=== PATIENT | female | born 1935 | race Caucasian/White ===

== ENCOUNTER → 2018-09-04 | Outpatient (RCR) | payer MEDICARE, BC | LOC: PT 08-16 16:18 | PROVIDERS: ATTEND Specialist | DX: M75.42 Impingement syndrome of left shoulder (principal); M75.92 Shoulder lesion, unspecified, left shoulder; M47.812 Spondylosis without myelopathy or radiculopathy, cervical region; M62.81 Muscle weakness (generalized) | CPT/HCPCS: 97010; 97110 ×8; 97162; 97530; G8984; G8985 ==

== ENCOUNTER 2018-09-18 15:00 | Outpatient (RCR) | payer MEDICARE, BC | END 2018-10-05 | LOC: PT 15:00 | PROVIDERS: ATTEND Specialist | DX: M75.42 Impingement syndrome of left shoulder (principal); M47.812 Spondylosis without myelopathy or radiculopathy, cervical region; M62.81 Muscle weakness (generalized) | CPT/HCPCS: 97010; 97110 ×5; G8984; G8985 ==

== ENCOUNTER 2019-10-31 13:59 | Outpatient (RCR) | payer MEDICARE, BC | END 2019-11-03 | LOC: PT 13:59 | PROVIDERS: ATTEND Specialist | DX: S32.10XD Unspecified fracture of sacrum, subsequent encounter for fracture with routine healing (principal); R26.89 Other abnormalities of gait and mobility ==

== ENCOUNTER 2019-11-14 13:58 | Outpatient (RCR) | payer MEDICARE, BC | END 2019-12-04 | LOC: PT 13:58 | PROVIDERS: ATTEND Specialist | DX: S32.10XD Unspecified fracture of sacrum, subsequent encounter for fracture with routine healing (principal); R26.89 Other abnormalities of gait and mobility ==

== ENCOUNTER 2022-11-29 15:12 | Emergency (ER) | payer MEDICARE, BC ==
[~2022-11-29] VITALS: Ht 160 cm; Wt 51.7 kg
[2022-11-29] MEDS ORDERED: PREDNISONE 20 MG TAB PO ONE (15:30)
[2022-11-29] MEDS: ALBUTEROL/IPRATROPIUM 3 ML NEB NEB ONE ×3 (15:40→16:36)
[2022-11-29] MEDS ORDERED: ALBUTEROL SULF 0.083% NEB SOLN 3 ML NEB ONE (16:05)
[2022-11-29] MEDS ORDERED: IPRATROPIUM BROMIDE 0.02% 2.5 ML NEB ONE (16:06)
[2022-11-29] MEDS ORDERED: PREDNISONE50 MG PO (16:45)
[2022-11-29] MEDS ORDERED: BROMFED DM COU118 ML PO (16:45)
[2022-11-29] MEDS ORDERED: BUDESONIDE0.5 MG/2 M NEB (16:45)
[2022-11-29] MEDS ORDERED: ALBUTEROL2.5 MG/0.5 PO (16:45)
== END 2022-11-29 17:24 | disposition home or self-care (01) ==
LOC: ER 15:18
DX: J44.1 Chronic obstructive pulmonary disease with (acute) exacerbation (principal); I10 Essential (primary) hypertension; Z87.891 Personal history of nicotine dependence; Z88.0 Allergy status to penicillin; Z79.899 Other long term (current) drug therapy
CPT/HCPCS: 71045; 94799; 99283; J7512

== ENCOUNTER → 2024-01-03 | Outpatient (RCR) | payer MEDICARE, BC ==
[~2024-01-03] MED LIST: ALBUTEROL2.5 MG/0.5 PO; BROMFED DM COU118 ML PO; BUDESONIDE0.5 MG/2 M NEB; PREDNISONE50 MG PO
== END ==
LOC: ST 10:49
PROVIDERS: ATTEND Physical Medicine & Rehabilitation
DX: I69.351 Hemiplegia and hemiparesis following cerebral infarction affecting right dominant side (principal); F80.2 Mixed receptive-expressive language disorder
CPT/HCPCS: 92523

== ENCOUNTER 2024-02-22 10:00 | Outpatient (RCR) | payer MEDICARE, BC | END 2024-03-04 | disposition home or self-care (01) | LOC: PT 10:00 | PROVIDERS: ATTEND Physical Medicine & Rehabilitation | DX: I69.351 Hemiplegia and hemiparesis following cerebral infarction affecting right dominant side (principal); F80.2 Mixed receptive-expressive language disorder ==

== ENCOUNTER 2025-02-14 11:03 | Emergency (ER) | payer MEDICARE, BC ==
[~2025-02-14] VITALS: Ht 160 cm; Wt 51.7 kg
[2025-02-14 11:21] VITALS: TEMP 98.1
[2025-02-14] MEDS ORDERED: SODIUM CHLORIDE FLUSH 10 ML SYR IV PRN (11:45)
[2025-02-14 12:12] LABS: BASOPHILS # (AUTO) 0.1 (0.0-0.1); BASOPHILS % 0.6 % (0.0-1.0); EOSINOPHILS % 0.2 % (0.0-6.0); HEMOGLOBIN 14.1 g/dL (12.0-16.0); LYMPHOCYTES # (AUTO) 1.3 (1.0-3.2); LYMPHOCYTES % 9.4 % (18.0-39.1); MEAN CORPUSCULAR HEMOGLOBIN 30.5 pg (28-32); MEAN CORPUSCULAR HGB CONC 32.8 g/dL (31-35); MEAN CORPUSCULAR VOLUME 93.1 fL (81-99); MONOCYTES # (AUTO) 1.1 (0.2-0.8); NEUTROPHILS % 81.3 % (38.7-80.0); PLATELET COUNT 268 x10e3/uL (140-360); RED BLOOD COUNT 4.62 x10e6/uL (3.6-5.1); RED CELL DISTRIBUTION WIDTH 15.6 % (11.7-14.4); WHITE BLOOD COUNT 13.55 x10e3/uL (4.8-10.8)
[2025-02-14 12:13] VITALS: PULSE 76; RESP 21; O2SAT 96
[2025-02-14] MEDS: ALBUTEROL/IPRATROPIUM 3 ML NEB NEB ONE (12:15)
[2025-02-14 12:30] VITALS: PULSE 76; RESP 21
[2025-02-14 12:31] LABS: ALBUMIN 3.4 g/dL (3.5-5.0); ALBUMIN/GLOBULIN RATIO 0.9 (0.8-2.0); ANION GAP 16.2 mmol/L (8-16); BILIRUBIN,TOTAL 1.3 mg/dL (0.2-1.2); CALCIUM 8.6 mg/dL (8.4-10.2); CREATININE, SERUM 0.98 mg/dL (0.57-1.11); POTASSIUM 4.2 mmol/L (3.5-5.1); TOTAL PROTEIN 7.2 g/dL (6.5-8.1)
[2025-02-14 12:37] LABS: TROPONIN I 0.006 ng/mL (0-0.300)
[2025-02-14] MEDS ORDERED: PREDNISONE50 MG PO (13:40)
[2025-02-14 13:45] VITALS: PULSE 82; RESP 20; O2SAT 97
== END 2025-02-14 13:55 | disposition home or self-care (01) ==
LOC: ER 11:16
DX: R06.02 Shortness of breath (principal); J44.1 Chronic obstructive pulmonary disease with (acute) exacerbation; J90 Pleural effusion, not elsewhere classified; R05.9 Cough, unspecified; I10 Essential (primary) hypertension; I48.91 Unspecified atrial fibrillation; M54.9 Dorsalgia, unspecified; G89.29 Other chronic pain; M19.09 Primary osteoarthritis, other specified site; R94.31 Abnormal electrocardiogram [ECG] [EKG]
CPT/HCPCS: 36415; 71045; 80053; 83880; 84484; 85025; 85379; 93005; 94640; 94760; 94799; 99284

== ENCOUNTER 2025-04-07 09:42 | Inpatient (IN) | payer MEDICARE, BC ==
[~2025-04-07] VITALS: Ht 160 cm; Wt 51.7 kg
[2025-04-07] VITALS (12 sets, daily range): BP systolic 121–130; BP diastolic 60–61; PULSE 64–71; RESP 18–21; TEMP 37; O2SAT 95–97
[2025-04-07] MEDS ORDERED: SODIUM CHLORIDE FLUSH 10 ML SYR IV PRN (10:00)
[2025-04-07] MEDS: ALBUTEROL/IPRATROPIUM 3 ML NEB NEB SCH ×2 (10:17→16:00)
[2025-04-07 10:23] LABS: BASOPHILS % 0.4 % (0.0-1.0); EOSINOPHILS % 1.1 % (0.0-6.0); LYMPHOCYTES % 13.9 % (18.0-39.1); MONOCYTES % 8.0 % (4.4-11.3); NEUTROPHILS % 75.8 % (38.7-80.0); RED CELL DISTRIBUTION WIDTH 15.2 % (11.7-14.4)
[2025-04-07 11:00] LABS: EST GLOMERULAR FILTRATION RATE 58.0 ML/MIN (>=60)
[2025-04-07] MEDS: METRONIDAZOLE 500MG/NS 100ML 100 ML IV SCH ×2 (11:59→21:41)
[2025-04-07] MEDS ORDERED: IOPAMIDOL 370 MG/ML 100 ML INFUS..BTL INJ ONE (12:21)
[2025-04-07] MEDS ORDERED: SODIUM CHLORIDE 0.9% 100 ML ONE (12:21)
[2025-04-07] MEDS ORDERED: ONDANSETRON HCL INJ 2MG/ML 2ML 2 MG/ML VIAL IV PRN ×2 (14:30→16:00)
[2025-04-07] MEDS ORDERED: ALBUTEROL/IPRATROPIUM 3 ML NEB NEB PRN ×2 (15:00→16:00)
[2025-04-07] MEDS: SODIUM CHLORIDE 0.9% 1000ML 1,000 ML IV SCH (15:32)
[2025-04-07] MEDS ORDERED: LIDOCAINE 4% PATCH TP PRN (16:00)
[2025-04-07] MEDS ORDERED: SIMETHICONE 80 MG CHEW PO PRN (16:00)
[2025-04-07] MEDS ORDERED: ACETAMINOPHEN 325 MG TAB PO PRN (16:00)
[2025-04-07] MEDS ORDERED: DEXTROSE 50% SYRINGE 50 ML IV PRN (16:00)
[2025-04-07] MEDS: DEXTROSE 5%/0.9% SOD CHL 1,000 ML IV SCH (17:17)
[2025-04-07] MEDS: ENOXAPARIN SOD INJ 40 MG/0.4 ML SYR SC SCH (17:18)
[2025-04-08] VITALS (12 sets, daily range): BP systolic 140–160; BP diastolic 65–86; PULSE 72–102; RESP 15–20; TEMP 97.9–100; O2SAT 96–100
[2025-04-08] MEDS: METOCLOPRAMIDE HCL 10 MG/2ML VIAL IV SCH (00:20)
[2025-04-08 05:47] LABS: BASOPHILS % 0.3 % (0.0-1.0); EOSINOPHILS % 0.6 % (0.0-6.0); LYMPHOCYTES % 16.2 % (18.0-39.1); MONOCYTES % 8.0 % (4.4-11.3); NEUTROPHILS % 74.1 % (38.7-80.0); RED CELL DISTRIBUTION WIDTH 14.9 % (11.7-14.4)
[2025-04-08 06:15] LABS: EST GLOMERULAR FILTRATION RATE 75.0 ML/MIN (>=60)
[2025-04-08] MEDS ORDERED: PANTOPRAZOLE SOD 40 MG TABEC PO SCH (07:30)
[2025-04-08 18:29] LABS: EST GLOMERULAR FILTRATION RATE 80.0 ML/MIN (>=60)
[2025-04-09] VITALS (11 sets, daily range): BP systolic 135–153; BP diastolic 73–103; PULSE 70–150; RESP 12–20; TEMP 97.4–98.8; O2SAT 94–100
[2025-04-09 06:09] LABS: BASOPHILS % 0.2 % (0.0-1.0); EOSINOPHILS % 0.6 % (0.0-6.0); LYMPHOCYTES % 15.0 % (18.0-39.1); MONOCYTES % 10.2 % (4.4-11.3); NEUTROPHILS % 72.9 % (38.7-80.0); RED CELL DISTRIBUTION WIDTH 15.2 % (11.7-14.4)
[2025-04-09 06:42] LABS: EST GLOMERULAR FILTRATION RATE 84.0 ML/MIN (>=60)
[2025-04-09] MEDS: CALCIUM GLUC 1 G/50 ML NACL 50 ML IV SCH (08:52)
[2025-04-09] MEDS: METOPROLOL TARTRATE INJ 1 MG/ML VIAL IV ONE (16:08)
[2025-04-09] MEDS: METOPROLOL SUCCINATE 50 MG TAB XL PO SCH (16:20)
[2025-04-09] MEDS ORDERED: METOPROLOL TAR100 MG PO (18:35)
[2025-04-09] MEDS ORDERED: ATORVASTATIN CA80 MG PO (18:35)
[2025-04-09] MEDS ORDERED: XARELTO15 MG PO (18:35)
[2025-04-09] MEDS ORDERED: ALL DAY ALLERGY10 MG PO (18:35)
[2025-04-09] MEDS ORDERED: FUROSEMIDE20 MG PO (18:35)
[2025-04-09] MEDS ORDERED: HYDROXYZINE HCL25 MG PO (18:35)
[2025-04-09] MEDS ORDERED: SOLIFENACIN SUC10 MG PO (18:35)
[2025-04-09] MEDS ORDERED: PROCARDIA XL60 MG PO (18:35)
[2025-04-09] MEDS ORDERED: TRELEGY ELLIPT1 EACH INH (18:37)
[2025-04-09] MEDS: BENZONATATE 100 MG CAP PO PRN (21:02)
[2025-04-09] MEDS: MELATONIN 5 MG TABLET PO PRN (21:02)
[2025-04-09] MEDS: METOCLOPRAMIDE HCL 10 MG/2ML VIAL IV SCH (23:47)
[2025-04-09] MEDS: HYDRALAZINE HCL 20 MG/ML VIAL IV PRN (23:47)
[2025-04-10] VITALS (10 sets, daily range): BP systolic 107–163; BP diastolic 63–76; PULSE 73–129; RESP 17–22; TEMP 97.6–98.7; O2SAT 90–99
[2025-04-10] MEDS: DIPHENHYDRAMINE HCL 25 MG CAP PO PRN (00:34)
[2025-04-10] MEDS: METOPROLOL SUCCINATE 50 MG TAB XL PO ONE (01:25)
[2025-04-10 05:31] LABS: BASOPHILS % 0.3 % (0.0-1.0); EOSINOPHILS % 0.7 % (0.0-6.0); LYMPHOCYTES % 12.4 % (18.0-39.1); MONOCYTES % 9.4 % (4.4-11.3); NEUTROPHILS % 76.2 % (38.7-80.0); RED CELL DISTRIBUTION WIDTH 15.1 % (11.7-14.4)
[2025-04-10 06:02] LABS: EST GLOMERULAR FILTRATION RATE 84.0 ML/MIN (>=60)
[2025-04-11] VITALS (11 sets, daily range): BP systolic 137–178; BP diastolic 69–99; PULSE 78–91; RESP 15–25; TEMP 97.5–98.8; O2SAT 93–99
[2025-04-11 05:37] LABS: BASOPHILS % 0.3 % (0.0-1.0); EOSINOPHILS % 2.2 % (0.0-6.0); LYMPHOCYTES % 17.2 % (18.0-39.1); MONOCYTES % 9.4 % (4.4-11.3); NEUTROPHILS % 70.1 % (38.7-80.0); RED CELL DISTRIBUTION WIDTH 15.0 % (11.7-14.4)
[2025-04-11 06:16] LABS: EST GLOMERULAR FILTRATION RATE 85.0 ML/MIN (>=60)
[2025-04-11] MEDS: METHYLPREDNISOLONE SOD SUCC 40 MG/ML VIAL 1ML IV ONE (11:13)
[2025-04-11 17:44] LABS: LEUKOCYTE ESTERASE ,URINE TRACE (NEGATIVE); PROTEIN,URINE DIPSTICK 1+ (NEGATIVE); URINE UROBILINOGEN 0.2 mg/dL (0.2 - 1)
[2025-04-11 17:58] LABS: WBC,URINE (MAN) >50 /HPF (0-5)
[2025-04-11 17:59] LABS: EPITHELIAL CELLS,URINE FEW /LPF
[2025-04-12] VITALS (13 sets, daily range): BP systolic 121–163; BP diastolic 76–101; PULSE 77–147; RESP 15–28; TEMP 97.5–98.2; O2SAT 94–100
[2025-04-12 05:51] LABS: BASOPHILS % 0.3 % (0.0-1.0); EOSINOPHILS % 0.0 % (0.0-6.0); LYMPHOCYTES % 13.4 % (18.0-39.1); MONOCYTES % 9.7 % (4.4-11.3); NEUTROPHILS % 75.9 % (38.7-80.0); RED CELL DISTRIBUTION WIDTH 14.9 % (11.7-14.4)
[2025-04-12 06:27] LABS: EST GLOMERULAR FILTRATION RATE 84.0 ML/MIN (>=60)
[2025-04-12] MEDS ORDERED: ETOMIDATE 40 MG/ 20ML VIAL IV ONE (14:59)
[2025-04-12] MEDS ORDERED: IOPAMIDOL 370 MG/ML 100 ML INFUS..BTL INJ ONE (19:53)
[2025-04-12] MEDS: AMIODARONE HCL 150 MG/100 ML BAG IV ONE (23:14)
[2025-04-12] MEDS: AMIODARONE 900MG 900 MG in Premix Bag 1 BAG IV SCH (23:28)
[2025-04-12] MEDS: AMIODARONE 900MG 500 ML IV ONE (23:58)
[2025-04-13] VITALS (23 sets, daily range): BP systolic 130–167; BP diastolic 77–104; PULSE 75–129; RESP 18–28; TEMP 97.7–98.3; O2SAT 93–100
[2025-04-13 08:05] LABS: EST GLOMERULAR FILTRATION RATE 86.0 ML/MIN (>=60)
[2025-04-13] MEDS: POTASSIUM CHLORIDE 20MEQ/100ML 100 ML IV ONE (09:33)
[2025-04-13] MEDS: POTASSIUM CHLORIDE 20 MEQ TAB CR PO STA (09:33)
[2025-04-13] MEDS: DOCUSATE SODIUM 100 MG CAP PO PRN (09:36)
[2025-04-13] MEDS: MAGNESIUM SULFATE 2GM/50ML 50 ML IV ONE (10:19)
[2025-04-13] MEDS: AMIODARONE HCL 200 MG TAB PO SCH (17:34)
[2025-04-14] VITALS (10 sets, daily range): BP systolic 147–161; BP diastolic 77–92; PULSE 75–96; RESP 17–25; TEMP 98.2–98.5; O2SAT 95–99
[2025-04-14 08:53] LABS: BASOPHILS % 0.3 % (0.0-1.0); EOSINOPHILS % 1.4 % (0.0-6.0); LYMPHOCYTES % 12.6 % (18.0-39.1); MONOCYTES % 7.1 % (4.4-11.3); NEUTROPHILS % 78.2 % (38.7-80.0); RED CELL DISTRIBUTION WIDTH 15.5 % (11.7-14.4)
[2025-04-14 09:16] LABS: EST GLOMERULAR FILTRATION RATE 85.0 ML/MIN (>=60)
[2025-04-14] MEDS: POTASSIUM CHLORIDE 20 MEQ TAB CR PO PRN (09:52)
[2025-04-14] MEDS: POTASSIUM CHLORIDE 20 MEQ TAB CR PO STA (14:47)
[2025-04-15] VITALS (7 sets, daily range): BP systolic 145–182; BP diastolic 85–103; PULSE 84–90; RESP 17–20; TEMP 97.5–98.1; O2SAT 92–98
[2025-04-15 05:45] LABS: EST GLOMERULAR FILTRATION RATE 85.0 ML/MIN (>=60)
== END 2025-04-15 14:36 | disposition home or self-care (01) | DRG 177 ==
LOC: ER 09:53 → ERHOLD 14:22 → MED/SURG2 15:18 → ICU 04-12 23:07 → MED/SURG 04-13 18:15
PROVIDERS: ADMIT Internal Medicine; ATTEND Internal Medicine
PROC: 0DB78ZX Excision of Stomach, Pylorus, Via Natural or Artificial Opening Endoscopic, Diagnostic (ICD-10-PCS; 2025-04-12)
PROC: 0D758ZZ Dilation of Esophagus, Via Natural or Artificial Opening Endoscopic (ICD-10-PCS; principal; 2025-04-12 15:38)
DX: J69.0 Pneumonitis due to inhalation of food and vomit (principal); E43 Unspecified severe protein-calorie malnutrition; J96.20 Acute and chronic respiratory failure, unspecified whether with hypoxia or hypercapnia; I50.32 Chronic diastolic (congestive) heart failure; K31.1 Adult hypertrophic pyloric stenosis; J18.9 Pneumonia, unspecified organism; M19.90 Unspecified osteoarthritis, unspecified site; M54.9 Dorsalgia, unspecified; G89.29 Other chronic pain; R13.10 Dysphagia, unspecified; I48.0 Paroxysmal atrial fibrillation; K20.90 Esophagitis, unspecified without bleeding; K44.9 Diaphragmatic hernia without obstruction or gangrene; D17.5 Benign lipomatous neoplasm of intra-abdominal organs; E27.8 Other specified disorders of adrenal gland; K21.9 Gastro-esophageal reflux disease without esophagitis; I11.0 Hypertensive heart disease with heart failure; J44.9 Chronic obstructive pulmonary disease, unspecified; K22.2 Esophageal obstruction; D72.829 Elevated white blood cell count, unspecified; I69.320 Aphasia following cerebral infarction; Z88.0 Allergy status to penicillin
CPT/HCPCS: 36415; 43450; 71045; 71046; 71260; 74160; 74230; 80048; 80053; 81001; 83735; 83880; 84484; 85014; 85018; 85025; 87040; 88305; 88342; 93005; 93306; 94640; 94667; 94668; 94669; 94760; 94799; 99284; J0360; J0696; J1650; J2470; J2765; J2919; J3475; J3480; J7030; J7042; J7050; Q9967